=== PATIENT | male | born 2000 | race Caucasian/White ===

== ENCOUNTER 2024-12-10 22:29 | Inpatient (IN) | payer MEDICAID ==
[~2024-12-10] VITALS: Ht 172.7 cm; Wt 64.0 kg
[2024-12-10] MEDS ORDERED: LEVETIRACETAM 500MG PREMIX 100 ML IV ONE (22:45)
[2024-12-10] MEDS: LEVETIRACETAM 1500MG PREMIX 100 ML IV NR (23:21)
[2024-12-10 23:49] LABS: BASOPHILS % 0.7 % (0.0-2.0); EOSINOPHILS % 1.4 % (0.0-5.0); HEMATOCRIT. 41.5 % (42.0-52.0); HEMOGLOBIN. 13.5 g/dL (14.0-18.0); LYMPHOCYTES % 24.4 % (20.0-50.0); MEAN PLATELET VOLUME 6.4 fl (7.4-10.4); MONOCYTES % 9.8 % (2.0-8.0); NEUTROPHILS % 63.7 % (40.0-76.0); PLATELET 244 x1000/uL (130-400); RED BLOOD CELL COUNT 4.54 mill/uL (4.7-6.1); RED CELL DISTRIBUTION WIDTH 14.8 % (11.6-14.6)
[2024-12-11] VITALS (58 sets, daily range): BP systolic 99–131; BP diastolic 40–78; PULSE 51–126; RESP 8–26; TEMP 36.3–37; O2SAT 80–100
[2024-12-11 00:02] LABS: CREATININE 1.1 mg/dL (0.6-1.3); ETHANOL BLOOD < 10 mg/dL (<10); UREA NITROGEN BLOOD 8 mg/dL (9-23)
[2024-12-11 00:04] LABS: ASPARTATE AMINOTRANSFERASE 17 IU/L (<34); BILIRUBIN TOTAL 0.9 mg/dL (0.1-1.0); PROTEIN TOTAL 7.2 g/dL (6.0-8.3); TROPONIN I HIGH SENSITIVITY 13 ng/L (3.0-53)
[2024-12-11] MEDS ORDERED: LEVE1000 PO (02:04)
[2024-12-11] MEDS ORDERED: ACETAMINOPHEN 325MG TABLET PO PRN ×2 (02:15)
[2024-12-11] MEDS ORDERED: DOCUSATE SODIUM 100MG CAPSULE PO PRN (02:15)
[2024-12-11] MEDS ORDERED: ONDANSETRON HCL 4MG/2ML INJ IV PRN (02:15)
[2024-12-11] MEDS ORDERED: CLONIDINE 0.1MG TABLET PO PRN (02:15)
[2024-12-11] MEDS: SODIUM CHLORIDE 0.9% 1,000 ML IV SCH (02:37)
[2024-12-11] MEDS: PANTOPRAZOLE SODIUM 40 MG/VIAL IV SCH (08:52)
[2024-12-11] MEDS: LEVETIRACETAM 1000MG PREMIX 100 ML IV SCH (08:53)
[2024-12-11] MEDS ORDERED: LEVETIRACETAM 1500MG PREMIX 100 ML IV SCH ×3 (09:00→20:45)
[2024-12-11] MEDS ORDERED: LEVETIRACETAM 1,000MG in NACL 100ML PREMIX IV SCH ×2 (09:00→21:00)
[2024-12-11] MEDS ORDERED: LEVETIRACETAM 1,500MG in NACL 100ML PREMIX IV SCH (09:00)
[2024-12-11] MEDS: LORAZEPAM 2MG/ML UD SYRINGE IV PRN (09:55)
[2024-12-11] MEDS ORDERED: LEVETIRACETAM 1,000MG in NACL 100ML PREMIX IV STA (09:57)
[2024-12-11] MEDS: LEVETIRACETAM 1000MG PREMIX 100 ML IV NR (10:10)
[2024-12-11 10:19] LABS: CREATINE KINASE MB FRACTION < 0.5 ng/mL (0.5-3.6); TROPONIN I HIGH SENSITIVITY 8 ng/L (3.0-53)
[2024-12-11] MEDS: LEVETIRACETAM 1500MG PREMIX 100 ML IV SCH (10:28)
[2024-12-11] MEDS: IPRATROPIUM/ALBUTEROL 0.5-3(2.5)MG/3ML NEB HHN PRN (10:50)
[2024-12-11 11:51] LABS: BASOPHILS % 0.7 % (0.0-2.0); EOSINOPHILS % 1.2 % (0.0-5.0); HEMATOCRIT. 32.3 % (42.0-52.0); HEMOGLOBIN. 10.5 g/dL (14.0-18.0); LYMPHOCYTES % 25.4 % (20.0-50.0); MEAN PLATELET VOLUME 6.7 fl (7.4-10.4); MONOCYTES % 10.9 % (2.0-8.0); NEUTROPHILS % 61.8 % (40.0-76.0); PLATELET 186 x1000/uL (130-400); RED BLOOD CELL COUNT 3.51 mill/uL (4.7-6.1); RED CELL DISTRIBUTION WIDTH 14.7 % (11.6-14.6)
[2024-12-11 11:53] LABS: CREATININE 0.6 mg/dL (0.6-1.3)
[2024-12-11 11:54] LABS: UREA NITROGEN BLOOD 6 mg/dL (9-23)
[2024-12-11 11:56] LABS: PHOSPHORUS 1.8 mg/dL (2.5-4.9)
[2024-12-11] MEDS: LORAZEPAM 2MG/ML UD SYRINGE IV NR (12:00)
[2024-12-11] MEDS: KCL 20MEQ/100ML PREMIX 100 ML IV ONE (12:30)
[2024-12-11 12:54] LABS: BG BASE EXCESS -0.1 mmol/L (-2.0-3.0); BG CARBOXYHEMOGLOBIN 1.2 % (0.5-1.5); BG DEOXYHEMOGLOBIN 0.4 % (0.0-5.0); BG FLOW(L/min) 4.00 L/min; BG FRACTION INSPIRED OXYGEN 36; BG HCO3 ACT 23.0 mmol/L (21.0-28.0); BG METHEMOGLOBIN 0.2 % (0.5-1.5); BG OXYGEN SATURATION 99.6 % (94.0-98.0); BG OXYHEMOGLOBIN 98.2 % (94.0-98.0); BG PCO2 33.2 mmHg (35.0-48.0); BG PH 7.459 (7.350-7.450); BG PO2 187.0 mmHg (83.0-108.0); BG SAMPLE SITE RIGHT RADIAL; BG TOTAL HEMOGLOBIN 14.8 g/dL (13.5-17.5); BG VENT MODE OXYGENATOR
[2024-12-11] MEDS: MAGNESIUM 2 G PREMIX 50 ML IV NR (13:15)
[2024-12-11] MEDS: POTASSIUM CHLORIDE 20MEQ TABLET SR PO NR ×2 (13:15→13:21)
[2024-12-11] MEDS: MAGNESIUM 2 G PREMIX 50 ML IV ONE (13:20)
[2024-12-11] MEDS: CALCIUM GLUCONATE 1GM PREMIX 50 ML IV ONE (15:17)
[2024-12-11] MEDS: POTASSIUM PHOSPHATE 20 MMOL in DEXT 5% WATER 243.3333 ML IV ONE (15:59)
[2024-12-11 16:11] LABS: CREATINE KINASE MB FRACTION 0.7 ng/mL (0.5-3.6); TROPONIN I HIGH SENSITIVITY 15 ng/L (3.0-53)
[2024-12-11 21:06] LABS: CLARITY URINE CLEAR (CLEAR); COLOR URINE YELLOW (YELLOW); GLUCOSE URINE NEGATIVE (NEGATIVE); KETONES URINE NEGATIVE (NEGATIVE); LEUKOCYTE ESTERASE URINE NEGATIVE (NEGATIVE); NITRITE URINE NEGATIVE (NEGATIVE); OCCULT BLOOD URINE NEGATIVE (NEGATIVE); PH URINE 6.5 (4.5-8.0); PROTEIN URINE NEGATIVE (NEGATIVE); SPECIFIC GRAVITY URINE 1.008 (1.005-1.030); UROBILINOGEN URINE 1.0 E.U./dL (0.2-1.0)
[2024-12-11 21:12] LABS: *AMPHETAMINES SCREEN URINE NEGATIVE (NEGATIVE); *BARBITURATES SCREEN URINE NEGATIVE (NEGATIVE); *BENZODIAZEPINES SCREEN URINE PRESUMPTIVE POSITIVE (NEGATIVE); *COCAINE SCREEN URINE PRESUMPTIVE POSITIVE (NEGATIVE); CANNABINOID URINE SCREEN PRESUMPTIVE POSITIVE (NEGATIVE); ECSTASY MDMA SCREEN URINE NEGATIVE (NEGATIVE); METHADONE URINE SCREEN NEGATIVE (NEGATIVE); OPIATES URINE SCREEN NEGATIVE (NEGATIVE); PHENCYCLIDINE URINE SCREEN NEGATIVE (NEGATIVE)
[2024-12-11] MEDS ORDERED: MORPHINE SULFATE 2 MG/ML INJ (NOT FOR IM USE) IV SCH (22:00)
[2024-12-12] VITALS (17 sets, daily range): BP systolic 100–121; BP diastolic 62–80; PULSE 51–83; RESP 21–26; TEMP 36.4–36.7; O2SAT 93–99
[2024-12-12] MEDS ORDERED: LEVETIRACETAM 1,000MG in NACL 100ML PREMIX IV SCH (09:00)
[2024-12-12] MEDS: LEVETIRACETAM 1000MG PREMIX 100 ML IV SCH (09:10)
[2024-12-12] MEDS ORDERED: LEVETIRACETAM 500MG/5ML CUP PO SCH (21:00)
== END 2024-12-12 11:27 | disposition left against medical advice (07) | DRG 53 ==
LOC: ER 22:29 → 7WST 12-11 00:10 → EDBEDREQ 12-11 00:12 → EDBEDREQDT 12-11 00:12 → EDBEDREQTM 12-11 00:12 → ENRESERV 12-11 00:33 → MICUSO 12-11 12:57
PROVIDERS: ADMIT Hospitalist; ATTEND Hospitalist
DX: G40.909 Epilepsy, unspecified, not intractable, without status epilepticus (principal); E87.8 Other disorders of electrolyte and fluid balance, not elsewhere classified; E83.39 Other disorders of phosphorus metabolism; E87.20 Acidosis, unspecified; R07.89 Other chest pain; E16.2 Hypoglycemia, unspecified; D64.9 Anemia, unspecified; E87.6 Hypokalemia; Z53.29 Procedure and treatment not carried out because of patient's decision for other reasons; E83.42 Hypomagnesemia; Z95.0 Presence of cardiac pacemaker; Z91.148 Patient's other noncompliance with medication regimen for other reason
CPT/HCPCS: 36415; 36600; 71045; 80048; 80053; 80305; 80320; 81003; 82306; 82310; 82330; 82375; 82542; 82550; 82553; 82805; 82962; 83036; 83605; 83735; 83970; 84100; 84145; 84484; 85025; 93005; 94070; 94640; 99285; A4606; J0610; J1953; J2060; J2470; J3475; J3490; J7030; J7060; G0480